=== PATIENT | male | born 1980 | race Caucasian/White ===

== ENCOUNTER 2019-10-01 10:06 | Emergency (ER) | payer OTHER, SELFPAY ==
[2019-10-01] MEDS ORDERED: Nitroglycerin 0.4 MG TAB 1 EACH ONE (10:42)
[2019-10-01] MEDS ORDERED: Aspirin Chewable 81 MG TAB ONE (10:43)
[2019-10-01 10:58] LABS: #Basophils 0.1 thou/uL (0.0-0.2); #Eosinphils 0.1 thou/uL (0.0-0.7); #Lymphocytes 2.9 thou/uL (1.20-3.40); #Monocytes 0.7 thou/uL (0.11-0.59); #Neutrophils 6.3 thou/uL (1.40-6.50); %Basophils 0.8 % (0.0-1.0); %Eosinophils 1.2 % (0.0-10.0); %Lymphocytes 28.6 % (21.0-51.0); %Monocytes 6.5 % (0.0-10.0); %Neutrophils 62.9 % (42.0-75.0); Hemoglobin 15.7 g/dL (14.0-18.0); Mean Corpuscular HGB CONC 30.6 g/dL (32.0-36.0); Mean Corpuscular Hemoglobin 28.7 pg (27.0-31.0); Mean Corpuscular Volume 93.6 fL (78.0-98.0); Platelet Count 270 thou/uL (130-400); RBC Distribution Width 12.5 % (11.5-14.5); Red Blood Cell (RBC) Count 5.49 mill/uL (4.70-6.10)
[2019-10-01] MEDS ORDERED: Nitroglycerin 2% Ointment 1 INCH/1 GM Packet ONE (11:10)
[2019-10-01 11:15] LABS: ALT (SGPT) 68 U/L (8-55); AST (SGOT) 33 U/L (5-34); Albumin 4.1 g/dL (3.5-5.0); Alkaline Phosphatase 84 U/L (40-110); Anion Gap 13 mmol/L (10-20); BUN (Urea Nitrogen) 9 mg/dL (8.9-20.6); Bilirubin, Total 0.3 mg/dL (0.2-1.2); Calc. Creatinine Clearance 0 mL/min (70-130); Calcium 8.8 mg/dL (7.8-10.44); Carbon Dioxide 27 mmol/L (22-29); Chloride 102 mmol/L (98-107); Estimated GFR-MDRD Greater than 90; Glucose 93 mg/dL (70-105); Lipase 68 U/L (8-78); Potassium 4.1 mmol/L (3.5-5.1); Protein, Total 7.1 g/dL (6.0-8.3); Sodium 138 mmol/L (136-145)
[2019-10-01] MEDS ORDERED: Acetaminophen 325 MG TAB ONE (14:21)
--- NOTE | 2019-10-01 14:54 | RAD ---
PORTABLE CHEST: Date: 10/01/2019 An AP portable film at 1040 hours shows a normal sized heart and clear lungs. No infiltrate or effusi on seen. No vascular congestion or edema. IMPRESSION: No acute findings. POS: HOME
== END 2019-10-01 15:59 | disposition short-term general hospital (02) ==
LOC: BURERS 10:06
DX: R07.2 Precordial pain (principal); I10 Essential (primary) hypertension; F41.9 Anxiety disorder, unspecified; F17.210 Nicotine dependence, cigarettes, uncomplicated
CPT/HCPCS: 36415; 71045; 80053; 83690; 83880; 84484; 85025; 93005

== ENCOUNTER 2021-08-16 10:49 | Emergency (ER) | payer MEDICAID, OTHER ==
[2021-08-16] MEDS ORDERED: Metoprolol Tartrate 5 MG/5 ML VIAL ONE (11:59)
[2021-08-16] MEDS ORDERED: Ketorolac Tromethamine 30 MG/ML VIAL ONE (11:59)
[2021-08-16] MEDS ORDERED: Aspirin 325 MG TAB ONE (11:59)
[2021-08-16] MEDS ORDERED: Nitroglycerin 0.4 MG TAB 1 EACH ONE (11:59)
[2021-08-16] MEDS ORDERED: Nitroglycerin 0.4 MG TAB 1 EACH SL PRN (12:02)
[2021-08-16] MEDS ORDERED: Enoxaparin Sodium 100 MG/ML SYRINGE ONE (12:09)
[2021-08-16] MEDS ORDERED: Metoprolol Tartrate 5 MG/5 ML VIAL IVP SCH (12:15)
[2021-08-16] MEDS ORDERED: Aspirin Chewable 81 MG TAB PO SCH (12:15)
[2021-08-16] MEDS ORDERED: Ketorolac Tromethamine 15 MG/ML VIAL IVP SCH (12:15)
[2021-08-16 12:20] LABS: #Basophils 0.1 thou/uL (0.0-0.2); #Eosinphils 0.1 thou/uL (0.0-0.7); #Lymphocytes 3.7 thou/uL (1.20-3.40); #Monocytes 0.6 thou/uL (0.11-0.59); #Neutrophils 8.6 thou/uL (1.40-6.50); %Lymphocytes 28.3 % (21.0-51.0); %Monocytes 4.5 % (0.0-10.0); %Neutrophils 65.3 % (42.0-75.0); Hemoglobin 16.8 g/dL (14.0-18.0); Mean Corpuscular HGB CONC 32.8 g/dL (32.0-36.0); Mean Corpuscular Hemoglobin 30.2 pg (27.0-31.0); Mean Corpuscular Volume 91.8 fL (78.0-98.0); Mean Platelet Volume 8.6 fL (7.4-10.4); Platelet Count 302 thou/uL (130-400); RBC Distribution Width 12.5 % (11.5-14.5); Red Blood Cell (RBC) Count 5.57 mill/uL (4.70-6.10); White Blood Cell (WBC) Count 13.2 thou/uL (4.8-10.8)
[2021-08-16 12:38] LABS: ALT (SGPT) 30 U/L (8-55); AST (SGOT) 17 U/L (5-34); Albumin 4.4 g/dL (3.5-5.0); Alkaline Phosphatase 77 U/L (40-110); Anion Gap 16 mmol/L (10-20); BUN (Urea Nitrogen) 13 mg/dL (8.9-20.6); Bilirubin, Total Less than 0.2 mg/dL (0.2-1.2); Calc. Creatinine Clearance 0 mL/min (70-130); Calcium 9.5 mg/dL (7.8-10.44); Carbon Dioxide 29 mmol/L (22-29); Chloride 100 mmol/L (98-107); Glucose 97 mg/dL (70-105); Lipase 24 U/L (8-78); Potassium 3.8 mmol/L (3.5-5.1); Protein, Total 7.4 g/dL (6.0-8.3); Sodium 141 mmol/L (136-145)
[2021-08-16] MEDS ORDERED: Fentanyl 100 MCG/2 ML VIAL ONE (14:01)
== END 2021-08-16 17:37 | disposition short-term general hospital (02) ==
LOC: BURERS 10:49
DX: R07.2 Precordial pain (principal); I25.10 Atherosclerotic heart disease of native coronary artery without angina pectoris; I10 Essential (primary) hypertension; E11.9 Type 2 diabetes mellitus without complications; I25.2 Old myocardial infarction; F17.210 Nicotine dependence, cigarettes, uncomplicated; Z79.899 Other long term (current) drug therapy
CPT/HCPCS: 71045; 80053; 83690; 84484; 85025; 85379; 93005; 94760; 96372; 96374; 96375; J1650; J1885; J3010

== ENCOUNTER 2023-09-05 18:10 | Emergency (ER) | payer OTHER ==
[2023-09-05] MEDS ORDERED: Ibuprofen 800 MG TAB ONE (18:39)
== END 2023-09-05 19:42 | disposition home or self-care (01) ==
LOC: BURERS 18:10
DX: S93.502A Unspecified sprain of left great toe, initial encounter (principal); E78.5 Hyperlipidemia, unspecified; I10 Essential (primary) hypertension; F17.210 Nicotine dependence, cigarettes, uncomplicated; Z79.899 Other long term (current) drug therapy; W23.1XXA Caught, crushed, jammed, or pinched between stationary objects, initial encounter

== ENCOUNTER 2023-10-11 09:45 | Outpatient (CLI) | payer OTHER | END 2023-10-11 09:46 | disposition home or self-care (01) | LOC: BURRAD 09:45 | PROVIDERS: ATTEND Nurse Practitioner Family | DX: S99.922A Unspecified injury of left foot, initial encounter (principal) ==

== ENCOUNTER 2025-03-25 08:47 | Emergency (ER) | payer OTHER ==
[2025-03-25] MEDS ORDERED: Aspirin Chewable 81 MG TAB ONE (09:03)
[2025-03-25 09:11] LABS: #Basophils 0.1 thou/uL (0.0-0.2); #Eosinophils 0.2 thou/uL (0.0-0.7); #Lymphocytes 3.4 thou/uL (1.20-3.40); #Monocytes 0.7 thou/uL (0.11-0.59); #Neutrophils 8.3 thou/uL (1.40-6.50); %Basophils 1.0 % (0.0-1.0); %Eosinophils 1.5 % (0.0-10.0); %Lymphocytes 26.9 % (21.0-51.0); %Monocytes 5.1 % (0.0-10.0); %Neutrophils 65.5 % (42.0-75.0); Hematocrit 49.9 % (42.0-52.0); Hemoglobin 16.1 g/dL (14.0-18.0); Mean Corpuscular Hemoglobin 29.9 pg (27.0-31.0); Mean Corpuscular Volume 92.9 fl (78.0-98.0); Platelet Count 334 10x3/uL (130-400); Red Blood Cell (RBC) Count 5.38 mill/uL (4.70-6.10); White Blood Cell (WBC) Count 12.7 10x3/uL (4.8-10.8)
[2025-03-25 09:36] LABS: ALT (SGPT) 30 U/L (Less than 45); AST (SGOT) 26 U/L (11-34); Albumin 4.0 g/dL (3.1-4.5); Alkaline Phosphatase 107 U/L (40-110); Anion Gap 15 mmol/L (10-20); BUN (Urea Nitrogen) 15 mg/dL (8.9-20.6); Bilirubin, Total 0.2 mg/dL (0.3-1.2); Calc. Creatinine Clearance 0 mL/min (70-130); Calcium 8.9 mg/dL (7.8-10.44); Carbon Dioxide 24 mmol/L (22-29); Chloride 107 mmol/L (98-107); Globulin 2.9 g/dL (2.4-3.5); Glucose 122 mg/dL (70-105); Potassium 4.1 mmol/L (3.5-5.1); Sodium 142 mmol/L (136-145)
[2025-03-25 09:37] LABS: Troponin I 0.018 ng/mL (< 0.028)
== END 2025-03-25 09:54 | disposition home or self-care (01) ==
LOC: BURERS 08:47
DX: R07.9 Chest pain, unspecified (principal); I25.2 Old myocardial infarction; I10 Essential (primary) hypertension; F17.210 Nicotine dependence, cigarettes, uncomplicated; Z79.899 Other long term (current) drug therapy
CPT/HCPCS: 71045; 80053; 84484; 85025; 93005